=== PATIENT | female | born 1975 | race Two or more races ===

== ENCOUNTER 2019-02-19 18:42 | Emergency (ER) | payer OTHER ==
[~2019-02-19] VITALS: Ht 160 cm; Wt 72.6 kg
--- NOTE | 2019-02-19 19:42 | NUR ---
Dr. Garrison at bedside for MSE.
--- NOTE | 2019-02-19 20:25 | NUR ---
Ultrasound at bedside.
--- NOTE | 2019-02-19 20:57 | NUR ---
Patient discharged to home in stable conditon WITH TAKING PATIENT HOME. Written and verbal after care instructions given. Patient verbalizes understanding of instructions. WALKED OUT OF ER WITH NO DISTRESS NOTED
[2019-02-19 20:58] VITALS: BP 118/72
== END 2019-02-19 20:58 | disposition home or self-care (01) ==
LOC: ER 18:46
DX: R53.1 Weakness (principal); M25.561 Pain in right knee; M25.562 Pain in left knee
CPT/HCPCS: A4663